=== PATIENT | female | born 1985 | race Caucasian/White ===

== ENCOUNTER 2016-12-29 21:41 | Inpatient (IN) ==
[2016-12-29] MEDS ORDERED: LACTATED RINGERS 250 ML IV ONE (22:30)
[2016-12-29] MEDS ORDERED: ONDANSETRON 4 MG/2 ML VIAL IV PRN (22:30)
[2016-12-29] MEDS ORDERED: BUTORPHANOL 2 MG/ML VIAL IV PRN (22:41)
[2016-12-29] MEDS ORDERED: MEPERIDINE 50 MG/1 ML VIAL IV PRN (22:42)
[2016-12-29] MEDS: LACTATED RINGERS 1,000 ML IV SCH (22:45)
[2016-12-29 22:47] LABS: Basophils % 0.3 % (0.0-0.8); Eosinophils # 0.1 10*3/uL (0.0-0.87); Eosinophils % 0.6 % (0.00-10.9); Hematocrit 34.7 VOL% (35.7-47.0); Hemoglobin 12.2 GM/DL (12.0-16.0); Immature Granulocytes % 0.4 %; Immature Granulocytes Absolute 0.04 #; Lymphocytes # 2.4 10*3/uL (1.4-4.0); Lymphocytes % 22.3 % (21.3-54.2); Mean Corpuscular HGB Conc 35.2 GM/DL (32-36); Mean Corpuscular Hemoglobin 31 PG (27-34); Mean Corpuscular Volume 87.4 FL (87-102); Mean Platelet Volume 11.1 FL (9.6-12.0); Monocytes # 0.9 10*3/uL (0.11-0.8); Monocytes % 7.9 % (1.7-12.7); Neutrophils # 7.4 10*3/uL (1.4-7.4); Neutrophils % 68.5 % (38.7-73.9); Platelet Count 223 T/CUMM (130-400); Red Blood Count 3.97 MC/CUMM (3.8-5.5); Red Cell Distribution Width 14.3 % (9.3-17.3); White Blood Count 10.7 T/CUMM (4-12)
[2016-12-29 23:13] LABS: Alanine Aminotransferase 10 U/L (13-56); Albumin 2.9 G/DL (3.4-5.0); Alkaline Phosphatase 145 U/L (45-117); Aspartate Amino Transferase 8 U/L (0-37); Bilirubin,Total < 0.39 MG/DL (0.2-1.0); Blood Urea Nitrogen 6 MG/DL (7-18); Calcium 9.5 MG/DL (8.5-10.1); Glucose 76 MG/DL (74-106); Osmolality,Calculated 273.5 MOS/KG (273-304); Potassium 3.9 MMOL/L (3.5-5.1); Sodium 139 MMOL/L (136-145); Total Protein 6.7 G/DL (6.4-8.3)
[2016-12-30] MEDS ORDERED: OXYTOCIN/LR 20 UNIT/1,000 ML BAG IV SCH (05:00)
[2016-12-30] MEDS: LACTATED RINGERS 1,000 ML IV SCH ×2 (05:58→19:18)
[2016-12-30] MEDS ORDERED: LACTATED RINGERS 1,000 ML IV ONE (07:50)
[2016-12-30] MEDS ORDERED: ONDANSETRON 4 MG/2 ML VIAL IV ONE (07:50)
[2016-12-30] MEDS ORDERED: ePHEDrine 50 MG/ML AMP IV PRN (07:50)
[2016-12-30] MEDS ORDERED: diphenhydrAMINE 50 MG/1 ML VIAL IV PRN ×2 (07:50)
[2016-12-30] MEDS ORDERED: fentaNYL 2 MCG/ROPIV 0.2% EPID 150 ML EPIDURAL SCH (07:50)
[2016-12-30] MEDS ORDERED: PROMETHAZINE 25 MG/1 ML VIAL IM ONE (07:50)
[2016-12-30] MEDS ORDERED: hydrOXYzine HCL 25 MG/1 ML VIAL IM PRN (07:50)
[2016-12-30] MEDS ORDERED: CITRIC ACID/SODIUM CITRATE 30 ML UDCUP PO ONE (07:50)
[2016-12-30] MEDS ORDERED: FAMOTIDINE 20 MG/2 ML VIAL IV ONE (07:50)
--- NOTE | 2016-12-30 08:41 | OB/GYN History & Physical ---
History of Present Illness Chief complaint: at 40 weeks elective induction History of present illness: Ms. Pichardo is a 31 year old female Home Medications Medication Instructions Recorded Confirmed Type Vit No.130/Iron/Folic 1 each PO DAILY 12/09/16 12/30/16 History [ Vitamins] Allergies Allergy/AdvReac Type Severity Reaction Status Date / Time aspirin Allergy Severe Swelling Verified 12/09/16 10:13 of Lip/Tongue/Throat ibuprofen Allergy Severe Swelling Verified 12/09/16 10:13 of Lip/Tongue/Throat Amoxicillin [From Augmentin] Allergy Intermediate RASH Verified 12/09/16 10:13 clavulanic acid Allergy Intermediate RASH Verified 12/09/16 10:13 [From Augmentin] 12 point system: reviewed and no additional remarkable complaints except as stated Medical,Surgical,& Family Hx - Medical History Musculoskeletal: No history of: Amputation - Surgical History Thoracic Surgeries: Patient denies;: Organ Transplant - Family History Family History: Reports;: Family Diabetes (mgm pgm) Denies;: Family Anesthesia Reaction, Family Cancer, Family Heart Disease, Family Hematology, Family Hypertension, Family Psychiatric Problems, Family Stroke, Additional Family History - Social History Smoking Status: Never smoker Frequency of Alcohol Use: None Type of Drug Use: 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 - Constitutional Vitals: Vital Signs Temp Pulse Resp BP 12/30/16 04:00 97.9 F 85 18 107/82 12/30/16 00:00 97.8 F 80 18 130/86 - Head Head exam: Present: normal inspection, normocephalic, atraumatic - Neck Neck exam: Present: normal inspection - Respiratory Respiratory exam: Present: clear to auscultation bilaterally - Breast Breasts: as per HPI Menstruation: as per HPI - Cardiovascular Cardiovascular exam: Present: regular rate and rhythm - GI/Abdominal GI/Abdominal exam: Present: normal bowel sounds - Extremities Exam Extremities exam: Present: normal inspection, normal capillary refill - Back Exam Back exam: Present: normal inspection - Neurological Exam Neurological exam: Present: alert, oriented X3 - Psychiatric Psychiatric exam: Present: normal affect, normal mood - Skin Skin exam: Present: normal color, warm Assessment and Plan (1) Postmaturity , 40-42 weeks gestation Status: Acute Current Visit: Yes (2) Elective induction of labor planned Status: Acute Current Visit: Yes (3) at 39-40 weeks Status: Acute Current Visit: Yes Results - Labs CBC & BMP: 12/29/16 22:40 12/29/16 22:40
[2016-12-30 11:04] LABS: Apearance,Urine CLEAR (Clear); Bilirubin,Urine Negative (Negative); Blood, Urine Negative (Negative); Glucose,Urine (UA) Negative (Negative); Ketones,Urine 5 mg/dL (Negative); Mucus,Urine Occasional /LPF (Occasional); Nitrite,Urine Negative (Negative); Protein,Urine Negative; RBC,Urine 1 /HPF (0-4); Squamous Epithelial Cell,Urine Occasional /HPF (0-10); Urine Color Straw (Yellow); Urine Specific Gravity 1.004 (1.001-1.035); Urine Urobilinogen < 2.0 EU/DL (0.2-1.0)
[2016-12-30] MEDS ORDERED: ONDANSETRON 4 MG/2 ML VIAL IV PRN (20:23)
[2016-12-30] MEDS ORDERED: IBUPROFEN 800 MG TABLET PO PRN (20:23)
[2016-12-30] MEDS ORDERED: WITCH HAZEL PADS 100/JAR TOP PRN (20:23)
[2016-12-30] MEDS ORDERED: RHO(D) IMMUNE GLOBULIN 300 MCG SYRINGE IM ONE (20:23)
[2016-12-30] MEDS ORDERED: BENZOCAINE 20%/MENTHOL 0.5% SPRAY 56 GM CAN TOP PRN (20:23)
[2016-12-30] MEDS ORDERED: LANOLIN 50% CREAM 0.3 OZ TUBE TOP PRN (20:23)
[2016-12-30] MEDS ORDERED: MEASLES/MUMPS/RUBELLA VACCINE 0.5 ML VIAL SUBCUT ONE (20:23)
[2016-12-30] MEDS ORDERED: BISACODYL 10 MG SUPP RECTAL PRN (20:23)
[2016-12-30] MEDS ORDERED: HYDROCORTISONE 2.5% RECTAL CREAM 30 GM TUBE TOP PRN (20:23)
[2016-12-30] MEDS ORDERED: OXYTOCIN/LR 20 UNIT/1,000 ML BAG IV ONE ×2 (20:23→22:20)
[2016-12-30] MEDS ORDERED: ACETAMINOPHEN 325 MG TABLET PO PRN (20:23)
[2016-12-30] MEDS ORDERED: DIPH/TET/ACEL PERT BOOSTER VACCINE 0.5 ML VIAL IM ONE (20:23)
[2016-12-30] MEDS ORDERED: oxyCODONE/ACETAMINOPHEN 5-325 MG TABLET PO PRN ×2 (20:23)
--- NOTE | 2016-12-30 20:23 | OB/GYN Progress Note ---
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 Arias dictating vaginal delivery And in LDR environment under sterile conditions, the patient progressed to completely dilated. She was allowed to push and under [epidural] anesthesia had a normal spontaneous vaginal delivery of a live born female unweighed Apgars pending over a second-degree midline tear. The 's nose and oropharynx were bulb and DeLee suctioned, and the had spontaneous cry after delivery. The cord was doubly clamped and cut and the was handed over to the pediatric team for care. The midline tear was repaired with 2-0 Monocryl suture in usual fashion under epidural anesthesia without complication cord blood was obtained the placenta delivered spontaneously intact and IV Pitocin was done. There were no cervical tears. There were no periurethral tears. Estimated blood loss was 250 mL. There were no complications. The bladder was emptied using a catheter prior to delivery. All sponge needle and instrument counts were correct -3 at the end of the delivery. 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
[2016-12-30] MEDS: ACETAMINOPHEN/CODEINE 300-30 MG TABLET PO PRN (23:57)
[2016-12-31] MEDS: DOCUSATE SODIUM 100 MG CAPSULE PO SCH ×3 (02:57→20:00)
[2016-12-31] MEDS: ACETAMINOPHEN/CODEINE 300-30 MG TABLET PO PRN ×3 (05:40→20:00)
[2016-12-31 07:00] LABS: Basophils # 0.1 10*3/uL (0.0-0.2); Basophils % 0.5 % (0.0-0.8); Eosinophils # 0.1 10*3/uL (0.0-0.87); Eosinophils % 0.4 % (0.00-10.9); Immature Granulocytes % 0.4 %; Immature Granulocytes Absolute 0.05 #; Lymphocytes # 2.3 10*3/uL (1.4-4.0); Lymphocytes % 18.1 % (21.3-54.2); Mean Corpuscular HGB Conc 34.4 GM/DL (32-36); Mean Corpuscular Hemoglobin 31 PG (27-34); Mean Corpuscular Volume 88.6 FL (87-102); Mean Platelet Volume 11.3 FL (9.6-12.0); Monocytes # 1.1 10*3/uL (0.11-0.8); Monocytes % 8.3 % (1.7-12.7); Neutrophils # 9.3 10*3/uL (1.4-7.4); Neutrophils % 72.3 % (38.7-73.9); Platelet Count 190 T/CUMM (130-400); Red Blood Count 3.61 MC/CUMM (3.8-5.5); Red Cell Distribution Width 14.6 % (9.3-17.3); White Blood Count 12.9 T/CUMM (4-12)
--- NOTE | 2016-12-31 07:08 | OB/GYN Progress Note ---
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
--- NOTE | 2016-12-31 08:11 | Anesthesia Post-Op ---
Anesthesia Post OP - Post Ansesthetic Evaluation Patient seen in post op: Yes Resp: within normal limits CV: within normal limits Mental: within normal limits Temp: within normal limits [id number]: within normal limits Nausea and Vomiting: within normal limits Pain: within normal limits
[2016-12-31] MEDS: MULTIVITAMIN (PRENATAL) TABLET PO SCH (08:21)
[2017-01-01] MEDS: ACETAMINOPHEN/CODEINE 300-30 MG TABLET PO PRN (04:08)
[2017-01-01 07:21] VITALS: BP 115/61
--- NOTE | 2017-01-01 08:50 | Discharge Summary ---
Hospital Course - Hospital Course Hospital Course: patient did well. She had quick return of bowel bladder function. Remained afebrile and normotensive throughout her hospitalization. She is constantly discharged on day #2 on a regular diet Diagnosis - Discharge Diagnosis (1) Postmaturity , 40-42 weeks gestation Status: Acute (2) Elective induction of labor planned Status: Acute (3) at 39-40 weeks Status: Acute Specialty Discharge - Follow Up or Referrals Discharge Plan - Discharge Data Disposition: Disch To Home/Self Care Condition at Discharge: Stable Discharge Diet: regular diet Activity: increase activity as tolerated, other (Pelvic rest) Hygiene: may shower Weight Bearing at Discharge: full weight bearing Driving: no restrictions Contact your physician if you experience:: fever over 101, Difficulty voiding, Redness or swelling, Nausea/Vomiting, Shortness of breath, Bleeding, pain uncontrolled by pain medications - Discharge Medications New HYDROcodone/ACETAMIN 5-325 [[place] 5-325] 1 tablet PO Q4H PRN #10 tablet PRN Reason: Abdominal Pain Continue Vit No.130/Iron/Folic [ Tablet] 1 each PO DAILY - Follow Up or Referral Follow Up: Yunier Arias MD [Physician] - 2 Weeks - Forms/Instructions Instructions: Depression (GEN), Perineal Care (DC), Vaginal Delivery (DC), Bleeding (DC) Exam - Constitutional Vitals: Period Temp Pulse Resp BP Sys/Mosley Pulse Ox Last 24 Hr 96.6 F-98.4 F 71-99 18-20 95-131/51-79 95-98 DS: Provider Date of admission: 12/29/16 21:55 Attending physician on admission: Brent Vazquez Consults: 12/29/16 22:30 Consult to Anesthesiology [CONS] Routine Consulting Provider: Reason for Anesthesiology: Epidural Consult Comment: Epidural for pain managment 12/30/16 20:23 Consult to Aoc Director Intelligence Officer [CONS] Routine Consult Aoc Director Intelligence Officer: Breast Feeding Discharging clinician: Brent Vazquez Expected date of discharge: 01/01/17
[2017-01-01] MEDS: DOCUSATE SODIUM 100 MG CAPSULE PO SCH (09:09)
[2017-01-01] MEDS: MULTIVITAMIN (PRENATAL) TABLET PO SCH (09:09)
== END 2017-01-01 12:15 | disposition home or self-care (01) | DRG 775 ==
LOC: N.LDOUT 21:41 → N.LD 21:45 → N.OB 12-30 23:44
PROVIDERS: ADMIT Specialist; ATTEND Specialist

== ENCOUNTER 2020-05-28 21:47 | Inpatient (IN) ==
[2020-05-28] MEDS ORDERED: BUTORPHANOL 2 MG/ML VIAL IV PRN (22:00)
[2020-05-28] MEDS ORDERED: MEPERIDINE 50 MG/1 ML VIAL IV PRN (22:00)
[2020-05-28] MEDS ORDERED: LACTATED RINGERS 1,000 ML IV SCH (22:00)
[2020-05-28] MEDS ORDERED: ONDANSETRON 4 MG/2 ML VIAL IV PRN (22:00)
[2020-05-28 23:02] LABS: Basophils # 0.1 10*3/uL (0.0-0.2); Basophils % 0.6 % (0.0-0.8); Eosinophils % 0.1 % (0.00-10.9); Hematocrit 34.8 VOL% (35.7-47.0); Hemoglobin 11.5 GM/DL (12.0-16.0); Immature Granulocytes % 0.4 %; Immature Granulocytes Absolute 0.03 #; Lymphocytes % 38.8 % (21.3-54.2); Mean Corpuscular Volume 86.4 FL (87-102); Mean Platelet Volume 12.5 FL (9.6-12.0); Monocytes % 5.7 % (1.7-12.7); Neutrophils % 54.4 % (38.7-73.9); Platelet Count 206 T/CUMM (130-400); Red Blood Count 4.03 MC/CUMM (3.8-5.5); White Blood Count 7.8 T/CUMM (4-12)
[2020-05-28 23:21] LABS: INR 0.9; PT Patient Result 9.8 SECS (9.8-11.9); Partial Thromboplastin Time 28.5 SECS (23.9-33.8)
[2020-05-28 23:28] LABS: Alanine Aminotransferase 12 U/L (13-56); Albumin 2.9 G/DL (3.4-5.0); Alkaline Phosphatase 292 U/L (45-117); Aspartate Amino Transferase 16 U/L (0-37); Bilirubin,Total < 0.39 MG/DL (0.2-1.0); Blood Urea Nitrogen 12 MG/DL (7-18); Calcium 9.1 MG/DL (8.5-10.1); Estimated Glom Filtration Rate 150 ML/MIN; Glucose 81 MG/DL (74-106); Osmolality,Calculated 271.8 MOS/KG (273-304); Total Protein 7.3 G/DL (6.4-8.3)
[2020-05-29] MEDS: CLINDAMYCIN INJ 900 MG in PREMIX 1 EACH IV SCH ×2 (00:15→08:13)
[2020-05-29] MEDS ORDERED: ZOLPIDEM 5 MG TABLET PO ONE (00:31)
[2020-05-29] MEDS ORDERED: ePHEDrine 50 MG/ML VIAL ONE (02:52)
[2020-05-29] MEDS ORDERED: fentaNYL 2 MCG/ROPIV 0.2% EPID 100 ML EPIDURAL ONE (02:52)
[2020-05-29] MEDS ORDERED: ePHEDrine 50 MG/ML VIAL IV ONE (02:54)
[2020-05-29] MEDS ORDERED: FAMOTIDINE 20 MG/2 ML VIAL IV PRN (02:55)
[2020-05-29] MEDS ORDERED: CITRIC ACID/SODIUM CITRATE 30 ML UDCUP PO PRN (02:58)
[2020-05-29] MEDS ORDERED: fentaNYL 2 MCG/ROPIV 0.2% EPID 100 ML EPIDURAL SCH (03:00)
[2020-05-29] MEDS ORDERED: CARBOPROST TROMETHAMINE 250 MCG/ML AMP IM ONE ×2 (04:23→13:41)
[2020-05-29] MEDS ORDERED: miSOPROStoL 200 MCG TABLET ONE ×2 (04:23→13:41)
[2020-05-29] MEDS ORDERED: TRANEXAMIC ACID 1,000 MG/10 ML VIAL ONE (04:23)
[2020-05-29] MEDS ORDERED: METHYLERGONOVINE 0.2 MG/1 ML AMP ONE ×2 (04:23→13:41)
[2020-05-29] MEDS: OXYTOCIN/LR 20 UNIT/1,000 ML BAG IV SCH ×2 (09:10→15:45)
[2020-05-29] MEDS ORDERED: OXYTOCIN/LR 20 UNIT/1,000 ML BAG IV ONE (13:41)
[2020-05-29] MEDS ORDERED: METHYLERGONOVINE 0.2 MG/1 ML AMP IM ONE (14:00)
[2020-05-29] MEDS ORDERED: miSOPROStoL 200 MCG TABLET PO ONE (15:46)
[2020-05-29] MEDS ORDERED: ACETAMINOPHEN 500 MG TABLET PO PRN (17:53)
[2020-05-29] MEDS ORDERED: ACETAMINOPHEN/CODEINE 300-30 MG TABLET PO PRN (22:29)
[2020-05-30 04:39] LABS: Basophils # 0.1 10*3/uL (0.0-0.2); Basophils % 0.7 % (0.0-0.8); Eosinophils % 0.2 % (0.00-10.9); Hematocrit 30.6 VOL% (35.7-47.0); Hemoglobin 9.9 GM/DL (12.0-16.0); Immature Granulocytes % 0.3 %; Immature Granulocytes Absolute 0.03 #; Lymphocytes # 3.3 10*3/uL (1.4-4.0); Lymphocytes % 32.5 % (21.3-54.2); Mean Corpuscular HGB Conc 32.4 GM/DL (32-36); Mean Corpuscular Volume 86.7 FL (87-102); Mean Platelet Volume 12.6 FL (9.6-12.0); Monocytes % 7.1 % (1.7-12.7); Neutrophils % 59.2 % (38.7-73.9); Platelet Count 170 T/CUMM (130-400); Red Blood Count 3.53 MC/CUMM (3.8-5.5); White Blood Count 10.1 T/CUMM (4-12)
[2020-05-30] MEDS ORDERED: oxyCODONE/ACETAMINOPHEN 5-325 MG TABLET PO PRN (07:31)
[2020-05-30] MEDS: SERTRALINE 100 MG TABLET PO SCH (08:00)
[2020-05-30] MEDS: DOCUSATE SODIUM 100 MG CAPSULE PO SCH ×2 (08:00→21:01)
[2020-05-30] MEDS: oxyCODONE/ACETAMINOPHEN 5-325 MG TABLET PO PRN ×2 (08:01→16:44)
[2020-05-30] MEDS ORDERED: ONDANSETRON 4 MG/2 ML VIAL IM PRN (12:30)
[2020-05-31] MEDS: oxyCODONE/ACETAMINOPHEN 5-325 MG TABLET PO PRN (00:30)
[2020-05-31 07:23] VITALS: BP 134/88
[2020-05-31] MEDS ORDERED: ACETAMINOPHEN/CODEINE 300-30 MG TABLET PO PRN (08:53)
[2020-05-31] MEDS: DOCUSATE SODIUM 100 MG CAPSULE PO SCH (09:02)
[2020-05-31] MEDS: SERTRALINE 100 MG TABLET PO SCH (09:02)
[2020-05-31] MEDS ORDERED: DIPH/TET/ACEL PERT BOOSTER VACCINE 0.5 ML VIAL IM ONE (10:42)
== END 2020-05-31 12:00 | disposition home or self-care (01) | DRG 807 ==
LOC: N.LD → OBSVTOIN 21:47 → N.OB 05-29 17:53
PROVIDERS: ADMIT Specialist; ATTEND Specialist